=== PATIENT | female | born 1935 | race Native Hawaiian/Other Pacific Islander ===

== ENCOUNTER 2016-07-03 10:33 | Outpatient (CLI) | payer OTHER ==
[~2016-07-03 10:33] MED LIST: CIPRO500 MG PO; CLON1TAB18 PO; CLONAZEP ODT1 MG OR; LEVO0.117 PO; SIMV40TA57; SIMV40TA57 PO
[2016-07-03 10:51] LABS: PLATELET COUNT 330 K/uL (152-353)
[2016-07-03 11:27] LABS: POTASSIUM 3.7 mmol/L (3.6-5.2)
== END 2016-07-03 20:27 | disposition home or self-care (01) ==
LOC: LABW 10:33
PROVIDERS: Internal Medicine
DX: E03.8 Other specified hypothyroidism (principal); Z79.899 Other long term (current) drug therapy; Z51.81 Encounter for therapeutic drug level monitoring
CPT/HCPCS: 36415; 80053; 80061; 81000; 84439; 84443; 85027

== ENCOUNTER 2017-01-07 08:20 | Outpatient (CLI) | payer OTHER ==
[2017-01-07 09:32] LABS: POTASSIUM 3.7 mmol/L (3.6-5.2)
[2017-01-07 09:49] LABS: PLATELET COUNT 443 K/uL (152-353)
== END 2017-01-07 19:30 | disposition home or self-care (01) ==
LOC: LABW 08:20
PROVIDERS: Internal Medicine
DX: I10 Essential (primary) hypertension (principal); E03.8 Other specified hypothyroidism; E55.9 Vitamin D deficiency, unspecified; R82.99 Other abnormal findings in urine
CPT/HCPCS: 36415; 80053; 80061; 81000; 82306; 84439; 84443; 85027; 87077; 87086; 87088; 87186

== ENCOUNTER 2018-01-07 11:05 | Outpatient (CLI) | payer OTHER ==
[2018-01-07 12:33] LABS: PLATELET COUNT 313 K/uL (152-353)
[2018-01-07 12:55] LABS: POTASSIUM 4.1 mmol/L (3.6-5.2)
== END 2018-01-07 20:18 | disposition home or self-care (01) ==
LOC: LABW 11:05
PROVIDERS: Internal Medicine
DX: I10 Essential (primary) hypertension (principal); E03.9 Hypothyroidism, unspecified; E78.00 Pure hypercholesterolemia, unspecified
CPT/HCPCS: 36415; 80053; 80061; 81000; 84439; 84443; 85027

== ENCOUNTER 2018-07-05 09:25 | Outpatient (CLI) | payer OTHER ==
[2018-07-05 10:07] LABS: PLATELET COUNT 436 K/uL (152-353)
[2018-07-05 10:32] LABS: POTASSIUM 3.8 mmol/L (3.6-5.2)
== END 2018-07-05 22:45 | disposition home or self-care (01) ==
LOC: LABW 09:25
PROVIDERS: Internal Medicine
DX: I10 Essential (primary) hypertension (principal); M19.90 Unspecified osteoarthritis, unspecified site; E78.00 Pure hypercholesterolemia, unspecified; E03.8 Other specified hypothyroidism
CPT/HCPCS: 36415; 80053; 80061; 81000; 83735; 84439; 84443; 85027

== ENCOUNTER 2018-07-18 09:03 | Outpatient (CLI) | payer OTHER ==
[2018-07-18 09:50] LABS: PLATELET COUNT 451 K/uL (152-353)
== END 2018-07-18 19:23 | disposition home or self-care (01) ==
LOC: LABW 09:03
PROVIDERS: Internal Medicine
DX: R79.89 Other specified abnormal findings of blood chemistry (principal)
CPT/HCPCS: 36415; 85027

== ENCOUNTER 2018-10-03 16:40 | Outpatient (CLI) | payer OTHER | END 2018-10-03 22:43 | disposition home or self-care (01) | LOC: LAB 16:40 | DX: R30.0 Dysuria (principal) | CPT/HCPCS: 87077; 87086; 87088; 87186 ==

== ENCOUNTER 2018-12-13 13:46 | Outpatient (CLI) | payer OTHER | END 2018-12-13 19:43 | disposition home or self-care (01) | LOC: LAB 13:46 | DX: N39.0 Urinary tract infection, site not specified (principal) | CPT/HCPCS: 87077; 87086; 87088; 87186 ==

== ENCOUNTER 2019-01-02 10:24 | Outpatient (CLI) | payer OTHER ==
[2019-01-02 11:13] LABS: POTASSIUM 3.8 mmol/L (3.6-5.2)
[2019-01-02 11:23] LABS: PLATELET COUNT 108 K/uL (152-353)
== END 2019-01-02 19:25 | disposition home or self-care (01) ==
LOC: LABW 10:24
PROVIDERS: Internal Medicine
DX: E03.8 Other specified hypothyroidism (principal); E78.00 Pure hypercholesterolemia, unspecified; G25.81 Restless legs syndrome
CPT/HCPCS: 36415; 80053; 80061; 81000; 84439; 84443; 85027

== ENCOUNTER 2019-01-10 10:18 | Outpatient (CLI) | payer OTHER ==
[2019-01-10 10:35] LABS: PLATELET COUNT 122 K/uL (152-353)
== END 2019-01-10 19:00 | disposition home or self-care (01) ==
LOC: LABW 10:18
PROVIDERS: Internal Medicine Medical Oncology
DX: D45 Polycythemia vera (principal); R16.2 Hepatomegaly with splenomegaly, not elsewhere classified
CPT/HCPCS: 36415; 85027

== ENCOUNTER 2019-01-17 10:19 | Outpatient (CLI) | payer OTHER ==
[2019-01-17 10:37] LABS: PLATELET COUNT 123 K/uL (152-353)
== END 2019-01-17 20:17 | disposition home or self-care (01) ==
LOC: LABW 10:19
PROVIDERS: Internal Medicine Medical Oncology
DX: D45 Polycythemia vera (principal); R16.2 Hepatomegaly with splenomegaly, not elsewhere classified
CPT/HCPCS: 36415; 85027

== ENCOUNTER 2019-01-24 09:24 | Outpatient (CLI) | payer OTHER ==
[2019-01-24 09:55] LABS: PLATELET COUNT 140 K/uL (152-353)
== END 2019-01-24 20:33 | disposition home or self-care (01) ==
LOC: LABW 09:24
PROVIDERS: Internal Medicine Medical Oncology
DX: D45 Polycythemia vera (principal); R16.2 Hepatomegaly with splenomegaly, not elsewhere classified
CPT/HCPCS: 36415; 85027

== ENCOUNTER 2019-02-07 09:30 | Outpatient (CLI) | payer OTHER ==
[2019-02-07 09:47] LABS: PLATELET COUNT 138 K/uL (152-353)
[2019-02-07 09:53] LABS: POTASSIUM 3.8 mmol/L (3.6-5.2)
== END 2019-02-07 22:28 | disposition home or self-care (01) ==
LOC: LABW 09:30
PROVIDERS: Internal Medicine Medical Oncology
DX: D45 Polycythemia vera (principal); R16.2 Hepatomegaly with splenomegaly, not elsewhere classified
CPT/HCPCS: 36415; 80053; 85027

== ENCOUNTER 2019-02-28 09:07 | Outpatient (CLI) | payer OTHER ==
[2019-02-28 10:25] LABS: PLATELET COUNT 143 K/uL (152-353)
== END 2019-02-28 20:52 | disposition home or self-care (01) ==
LOC: LABW 09:07
PROVIDERS: Internal Medicine Medical Oncology
DX: D45 Polycythemia vera (principal); R16.2 Hepatomegaly with splenomegaly, not elsewhere classified
CPT/HCPCS: 36415; 85027

== ENCOUNTER 2019-03-21 09:11 | Outpatient (CLI) | payer OTHER ==
[2019-03-21 10:01] LABS: PLATELET COUNT 131 K/uL (152-353)
== END 2019-03-21 20:08 | disposition home or self-care (01) ==
LOC: LABW 09:11
PROVIDERS: Internal Medicine Medical Oncology
DX: D45 Polycythemia vera (principal); R16.2 Hepatomegaly with splenomegaly, not elsewhere classified
CPT/HCPCS: 36415; 85027

== ENCOUNTER 2019-04-11 08:34 | Outpatient (CLI) | payer OTHER ==
[2019-04-11 09:06] LABS: POTASSIUM 4.1 mmol/L (3.6-5.2)
[2019-04-11 09:46] LABS: PLATELET COUNT 140 K/uL (152-353)
== END 2019-04-11 20:08 | disposition home or self-care (01) ==
LOC: LABW 08:34
PROVIDERS: Internal Medicine Medical Oncology
DX: Z00.00 Encounter for general adult medical examination without abnormal findings (principal); D45 Polycythemia vera; R16.2 Hepatomegaly with splenomegaly, not elsewhere classified; Z79.899 Other long term (current) drug therapy
CPT/HCPCS: 36415; 80053; 80061; 81000; 84443; 85027

== ENCOUNTER 2019-05-08 08:59 | Outpatient (CLI) | payer OTHER ==
[2019-05-08 09:20] LABS: PLATELET COUNT 180 K/uL (152-353)
[2019-05-08 09:37] LABS: POTASSIUM 3.9 mmol/L (3.6-5.2)
== END 2019-05-08 21:33 | disposition home or self-care (01) ==
LOC: LABW 08:59
PROVIDERS: Internal Medicine Medical Oncology
DX: D45 Polycythemia vera (principal); R16.2 Hepatomegaly with splenomegaly, not elsewhere classified
CPT/HCPCS: 36415; 80053; 85027

== ENCOUNTER 2019-06-06 09:17 | Outpatient (CLI) | payer OTHER ==
[2019-06-06 10:04] LABS: PLATELET COUNT 212 K/uL (152-353)
[2019-06-06 10:12] LABS: POTASSIUM 3.7 mmol/L (3.6-5.2)
== END 2019-06-06 19:39 | disposition home or self-care (01) ==
LOC: LABW 09:17
PROVIDERS: Internal Medicine Medical Oncology
DX: D45 Polycythemia vera (principal); R16.2 Hepatomegaly with splenomegaly, not elsewhere classified
CPT/HCPCS: 36415; 80053; 85027

== ENCOUNTER 2019-07-03 12:55 | Outpatient (CLI) | payer OTHER ==
[2019-07-03 13:35] LABS: PLATELET COUNT 214 K/uL (152-353)
[2019-07-03 13:55] LABS: POTASSIUM 3.5 mmol/L (3.6-5.2)
== END 2019-07-03 22:58 | disposition home or self-care (01) ==
LOC: LABW 12:55
PROVIDERS: Internal Medicine Medical Oncology
DX: D45 Polycythemia vera (principal); R16.2 Hepatomegaly with splenomegaly, not elsewhere classified
CPT/HCPCS: 36415; 80053; 85027

== ENCOUNTER 2019-09-01 09:56 | Outpatient (CLI) | payer OTHER ==
[2019-09-01 10:18] LABS: POTASSIUM 4.1 mmol/L (3.6-5.2)
[2019-09-01 10:21] LABS: PLATELET COUNT 201 K/uL (152-353)
== END 2019-09-01 18:56 | disposition home or self-care (01) ==
LOC: LABW 09:56
PROVIDERS: Nurse Practitioner Adult Health
DX: D45 Polycythemia vera (principal); R16.2 Hepatomegaly with splenomegaly, not elsewhere classified
CPT/HCPCS: 36415; 80053; 85027

== ENCOUNTER 2019-10-04 08:54 | Outpatient (CLI) | payer OTHER ==
[2019-10-04 09:52] LABS: PLATELET COUNT 205 K/uL (152-353)
[2019-10-04 09:57] LABS: POTASSIUM 3.7 mmol/L (3.6-5.2)
== END 2019-10-04 20:22 | disposition home or self-care (01) ==
LOC: LABW 08:54
PROVIDERS: Internal Medicine Medical Oncology
DX: D45 Polycythemia vera (principal); R16.2 Hepatomegaly with splenomegaly, not elsewhere classified; E03.8 Other specified hypothyroidism; R82.998 Other abnormal findings in urine
CPT/HCPCS: 36415; 80053; 80061; 81000; 84439; 84443; 85027; 87077; 87086; 87088; 87186

== ENCOUNTER 2019-11-03 10:03 | Outpatient (CLI) | payer OTHER ==
[2019-11-03 10:34] LABS: PLATELET COUNT 218 K/uL (152-353)
[2019-11-03 10:38] LABS: POTASSIUM 4.2 mmol/L (3.6-5.2)
== END 2019-11-03 23:01 | disposition home or self-care (01) ==
LOC: LABW 10:03
PROVIDERS: Nurse Practitioner Adult Health
DX: D45 Polycythemia vera (principal); R16.2 Hepatomegaly with splenomegaly, not elsewhere classified
CPT/HCPCS: 36415; 80053; 85027

== ENCOUNTER 2019-12-29 11:43 | Outpatient (CLI) | payer OTHER ==
[2019-12-29 12:09] LABS: PLATELET COUNT 220 K/uL (152-353)
[2019-12-29 12:33] LABS: POTASSIUM 3.8 mmol/L (3.6-5.2)
== END 2019-12-29 19:03 | disposition home or self-care (01) ==
LOC: LABW 11:43
PROVIDERS: Nurse Practitioner Adult Health
DX: D45 Polycythemia vera (principal); R16.2 Hepatomegaly with splenomegaly, not elsewhere classified; E03.8 Other specified hypothyroidism; E78.00 Pure hypercholesterolemia, unspecified
CPT/HCPCS: 36415; 80053; 80061; 84439; 84443; 85027

== ENCOUNTER 2020-02-26 11:16 | Outpatient (CLI) | payer OTHER ==
[2020-02-26 11:58] LABS: PLATELET COUNT 227 K/uL (152-353)
[2020-02-26 12:03] LABS: POTASSIUM 4.1 mmol/L (3.6-5.2)
== END 2020-02-26 19:45 | disposition home or self-care (01) ==
LOC: LABW 11:16
PROVIDERS: ATTEND Nurse Practitioner Adult Health
DX: D45 Polycythemia vera (principal); R16.2 Hepatomegaly with splenomegaly, not elsewhere classified
CPT/HCPCS: 36415; 80053; 85027

== ENCOUNTER 2020-04-03 15:30 | Outpatient (CLI) | payer OTHER | END 2020-04-03 19:48 | disposition home or self-care (01) | LOC: LAB 15:30 | PROVIDERS: ATTEND Internal Medicine | DX: L02.838 Carbuncle of other sites (principal) | CPT/HCPCS: 87070; 87205 ==

== ENCOUNTER 2020-08-06 10:30 | Outpatient (CLI) | payer OTHER ==
[2020-08-06 10:42] LABS: PLATELET COUNT 211 K/uL (152-353)
== END 2020-08-06 19:34 | disposition home or self-care (01) ==
LOC: LABW 10:30
PROVIDERS: ATTEND Internal Medicine Hematology & Oncology
DX: D45 Polycythemia vera (principal); R16.2 Hepatomegaly with splenomegaly, not elsewhere classified
CPT/HCPCS: 36415; 80053; 85027

== ENCOUNTER 2020-09-10 10:33 | Outpatient (CLI) | payer OTHER ==
[2020-09-22 08:50] LABS: PLATELET COUNT 198 K/uL (152-353)
[2020-09-22 08:51] LABS: POTASSIUM 4.1 mmol/L (3.6-5.2)
== END 2020-09-10 13:00 | disposition home or self-care (01) ==
LOC: LABW 10:33
PROVIDERS: ATTEND Nurse Practitioner Adult Health
DX: D45 Polycythemia vera (principal); R16.2 Hepatomegaly with splenomegaly, not elsewhere classified
CPT/HCPCS: 36415; 80053; 85027

== ENCOUNTER 2020-10-01 11:30 | Outpatient (CLI) | payer OTHER ==
[2020-10-01 12:13] LABS: POTASSIUM 3.9 mmol/L (3.6-5.2)
[2020-10-01 12:19] LABS: PLATELET COUNT 188 K/uL (152-353)
== END 2020-10-01 22:26 | disposition home or self-care (01) ==
LOC: LABW 11:30
PROVIDERS: ATTEND Internal Medicine Hematology & Oncology
DX: D45 Polycythemia vera (principal); R16.2 Hepatomegaly with splenomegaly, not elsewhere classified
CPT/HCPCS: 36415; 80053; 85027

== ENCOUNTER 2020-12-31 11:32 | Outpatient (CLI) | payer OTHER ==
[2020-12-31 11:56] LABS: PLATELET COUNT 187 K/uL (152-353)
[2020-12-31 13:05] LABS: POTASSIUM 3.9 mmol/L (3.6-5.2)
== END 2020-12-31 19:38 | disposition home or self-care (01) ==
LOC: LABW 11:32
PROVIDERS: ATTEND Internal Medicine
DX: E03.8 Other specified hypothyroidism (principal); D45 Polycythemia vera
CPT/HCPCS: 36415; 80053; 80061; 81000; 84439; 84443; 85027

== ENCOUNTER 2021-02-06 08:44 | Outpatient (CLI) | payer OTHER ==
[2021-02-06 08:59] LABS: PLATELET COUNT 175 K/uL (152-353)
[2021-02-06 09:23] LABS: POTASSIUM 3.9 mmol/L (3.6-5.2)
== END 2021-02-06 19:16 | disposition home or self-care (01) ==
LOC: LABW 08:44
PROVIDERS: ATTEND Internal Medicine Hematology & Oncology
DX: D45 Polycythemia vera (principal); R16.2 Hepatomegaly with splenomegaly, not elsewhere classified
CPT/HCPCS: 36415; 80053; 85027

== ENCOUNTER 2021-06-30 13:04 | Outpatient (CLI) | payer OTHER ==
[2021-06-30 13:41] LABS: PLATELET COUNT 197 K/uL (152-353)
[2021-06-30 14:11] LABS: POTASSIUM 3.9 mmol/L (3.6-5.2)
== END 2021-06-30 22:09 | disposition home or self-care (01) ==
LOC: LAB 13:04
PROVIDERS: ATTEND Internal Medicine
DX: M19.90 Unspecified osteoarthritis, unspecified site (principal); I10 Essential (primary) hypertension; E03.8 Other specified hypothyroidism; R82.998 Other abnormal findings in urine
CPT/HCPCS: 80053; 80061; 81000; 84439; 84443; 85027; 87077; 87086; 87088; 87186

== ENCOUNTER 2021-08-06 09:35 | Outpatient (CLI) | payer OTHER ==
[2021-08-06 09:48] LABS: PLATELET COUNT 172 K/uL (152-353)
[2021-08-06 10:11] LABS: POTASSIUM 3.7 mmol/L (3.6-5.2)
== END 2021-08-06 19:15 | disposition home or self-care (01) ==
LOC: LABW 09:35
PROVIDERS: ATTEND Internal Medicine Hematology & Oncology
DX: D45 Polycythemia vera (principal); R16.2 Hepatomegaly with splenomegaly, not elsewhere classified
CPT/HCPCS: 36415; 80053; 85027

== ENCOUNTER 2021-12-26 12:01 | Outpatient (CLI) | payer OTHER ==
[2021-12-26 12:30] LABS: PLATELET COUNT 192 K/uL (152-353)
[2021-12-26 13:59] LABS: POTASSIUM 4.1 mmol/L (3.6-5.2)
== END 2021-12-26 19:05 | disposition home or self-care (01) ==
LOC: LAB 12:01
PROVIDERS: ATTEND Internal Medicine
DX: I10 Essential (primary) hypertension (principal); E03.8 Other specified hypothyroidism; R82.998 Other abnormal findings in urine
CPT/HCPCS: 80053; 80061; 81000; 84439; 84443; 85027; 87077; 87086; 87088; 87186

== ENCOUNTER 2022-06-29 11:44 | Outpatient (CLI) | payer OTHER ==
[2022-06-29 11:57] LABS: PLATELET COUNT 205 K/uL (152-353)
[2022-06-29 12:19] LABS: POTASSIUM 3.8 mmol/L (3.6-5.2)
== END 2022-06-29 19:02 | disposition home or self-care (01) ==
LOC: LAB 11:44
PROVIDERS: ATTEND Internal Medicine
DX: I10 Essential (primary) hypertension (principal); E03.8 Other specified hypothyroidism
CPT/HCPCS: 80053; 80061; 84439; 84443; 85027

== ENCOUNTER 2022-08-11 07:55 | Outpatient (CLI) | payer OTHER ==
[2022-08-11 08:13] LABS: PLATELET COUNT 183 K/uL (152-353)
[2022-08-11 08:22] LABS: POTASSIUM 3.9 mmol/L (3.6-5.2)
== END 2022-08-11 19:05 | disposition home or self-care (01) ==
LOC: LABW 07:55
PROVIDERS: ATTEND Internal Medicine Hematology & Oncology
DX: D45 Polycythemia vera (principal); R16.2 Hepatomegaly with splenomegaly, not elsewhere classified
CPT/HCPCS: 36415; 80053; 85027

== ENCOUNTER 2022-11-26 12:19 | Outpatient (CLI) | payer OTHER ==
[2022-11-26 12:32] LABS: PLATELET COUNT 213 K/uL (152-353)
[2022-11-26 12:52] LABS: POTASSIUM 3.8 mmol/L (3.6-5.2)
== END 2022-11-26 19:29 | disposition home or self-care (01) ==
LOC: LABW 12:19
PROVIDERS: ATTEND Internal Medicine Hematology & Oncology
DX: D45 Polycythemia vera (principal); R16.2 Hepatomegaly with splenomegaly, not elsewhere classified
CPT/HCPCS: 36415; 80053; 85027

== ENCOUNTER 2022-12-29 13:55 | Outpatient (CLI) | payer OTHER ==
[2022-12-29 15:30] LABS: PLATELET COUNT 239 K/uL (152-353)
[2022-12-29 15:43] LABS: POTASSIUM 3.8 mmol/L (3.6-5.2)
== END 2022-12-29 18:58 | disposition home or self-care (01) ==
LOC: LAB 13:55
PROVIDERS: ATTEND Internal Medicine
DX: E03.8 Other specified hypothyroidism (principal); M19.90 Unspecified osteoarthritis, unspecified site; I10 Essential (primary) hypertension; R82.998 Other abnormal findings in urine; E55.9 Vitamin D deficiency, unspecified
CPT/HCPCS: 80053; 80061; 81000; 82306; 84439; 84443; 85027; 87077; 87086; 87088; 87186